=== PATIENT | male | born 1985 | race Caucasian/White ===

== ENCOUNTER 2018-04-27 08:00 | Day surgery (SDC) | payer BC ==
[~2018-04-27] VITALS: Ht 167.6 cm; Wt 74.3 kg
[2018-04-27 08:58] VITALS: Ht 167.6 cm; Wt 74.3 kg
[2018-04-27] MEDS ORDERED: CLON0.2T5 PO (08:59)
[2018-04-27] MEDS ORDERED: LISI10TA2 PO (08:59)
[2018-04-27] MEDS ORDERED: ATOR20TA38 PO (09:00)
[2018-04-27] MEDS ORDERED: METO-407 PO (09:00)
[2018-04-27 09:01] VITALS: BP 130/90; PULSE 74; RESP 16
[2018-04-27 09:40] VITALS: BP 135/86; PULSE 81; RESP 16
--- NOTE | 2018-04-27 09:49 | SIPON ---
Date/Time of Note Date/Time of Note DATE: 04/27/18 TIME: 09:48 Operative Report Preoperative Diagnosis L arm AVF malfunction Postoperative Diagnosis same Operation/Procedure Performed L arm AV fistulagram, PTV cephalic arch vein stenosis (10x40 to 10 milly 75% to 20%) Surgeon see signature line assistant project manager none Anesthesia: other Estimated blood loss: none Transfusion Required none Specimen none Grafts/Implants none Complications none PADILLA XIE MD Apr 27, 2018 09:49
--- NOTE | 2018-04-27 13:04 | OPR ---
DATE OF OPERATION: 04/27/2018 PREOPERATIVE DIAGNOSIS: Left arm arteriovenous fistula malfunction. POSTOPERATIVE DIAGNOSIS: Left arm arteriovenous fistula malfunction. PROCEDURE PERFORMED: Left arm arteriovenous fistulogram with percutaneous venoplasty of the cephalic arch. SURGEON: Padilla Morrow MD ANESTHESIA: Local anesthesia. ESTIMATED BLOOD LOSS: Minimal. COMPLICATIONS: No intraprocedural complications. INDICATIONS: A 33-year-old diabetic hypertensive gentleman with end-stage renal disease, has been on dialysis via left arm AV fistula for several years. 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 It is very pulsatile as well, so I suspected a central stenosis. We brought him in today for a fistulogram and possible intervention. PROCEDURE: The patient was brought to the catheterization laboratory technician, placed on the table in the supine position. Lef t arm was prepped and draped in the usual sterile fashion. I infiltrated over the fistula just above the elbow using about 10 mL of 1% Xylocaine, I used a micropuncture needle to enter the fistula unde r manual guidance. I then advanced an 0.018 wire through the needle and into the fistula and a micro puncture sheath over the wire into the fistula. I did a fistulogram that showed a dilated vein. It was essentially impossible to get an arterial anastomotic site because of the dilation and the pain i tself. The fistula upstream is patent and tortuous and there is about a 75% stenosis right at the ce phalic arch where the cephalic arch meets the subclavian vein. The central veins are widely patent, so I advanced an 0.035 Glidewire through the micropuncture sheath and into the superior vena cava and exchanged the micropuncture sheath for a 6-British sheath over the wire and then angioplastied the ce phalic arch stenosis with a 10 mm x 4 cm balloon to 10 atmospheres. We did 2 inflations each for 30 seconds. There is about 20% residual stenosis, but it was significantly improved. There were multip le big collaterals going around the area of stenosis prior to the angioplasty which even after angiop lasty, you could still see the collaterals but they were much less prominent and there was more brisk filling through the cephalic arch itself. I was happy with the result. I removed the catheter avila ths and wires, put a 4-0 Monocryl pursestring suture around the puncture site. Sterile dressing was applied. The patient tolerated the procedure well without any complications. Dictated By: PADILLA MARTINI/HERO Conf#: [id number] DID#: [id number]
== END 2018-04-27 10:40 | disposition home or self-care (01) ==
LOC: SDS 08:00
PROVIDERS: ATTEND Surgery Vascular Surgery
DX: T82.590A Other mechanical complication of surgically created arteriovenous fistula, initial encounter (principal); Y84.1 Kidney dialysis as the cause of abnormal reaction of the patient, or of later complication, without mention of misadventure at the time of the procedure; I12.0 Hypertensive chronic kidney disease with stage 5 chronic kidney disease or end stage renal disease; N18.6 End stage renal disease; E11.9 Type 2 diabetes mellitus without complications
CPT/HCPCS: 36902; 82962; 84132; C1894; Z7610